=== PATIENT | female | born 1955 | race Two or more races ===

== ENCOUNTER 2023-06-01 06:07 | Inpatient (IN) | payer MEDICARE, OTHER ==
[~2023-06-01] VITALS: Ht 160 cm; Wt 74.1 kg
[2023-06-01 06:14] VITALS: BP 149/75; TEMP 97.9; O2SAT 96
[2023-06-01] MEDS ORDERED: FENTANYL PF 250MCG/5ML AMPUL ONE (07:03)
[2023-06-01] MEDS ORDERED: ROCURONIUM BROMIDE 50 MG/5 ML ONE (07:03)
[2023-06-01] MEDS ORDERED: LIDOCAINE 2%-EPI 1:100,000 30 ML VIAL ONE ×2 (07:08→07:11)
[2023-06-01] MEDS ORDERED: ANESTHESIA TRAY IN PYXIS 1 EA TRAY MC ONE (07:08)
[2023-06-01] MEDS ORDERED: dexaMETHasone SOD PHOSPHATE 2 ML ONE ×2 (07:09→07:11)
[2023-06-01] MEDS ORDERED: VANCOMYCIN 1 GM VIAL ONE ×2 (07:09→07:11)
[2023-06-01] MEDS ORDERED: SEVOFLURANE 250 ML BOTTLE IH ONE (07:51)
[2023-06-01 11:00] VITALS: BP 134/65; TEMP 97.7; O2SAT 96
[2023-06-01] MEDS ORDERED: ROSU5TAB PO (11:14)
[2023-06-01] MEDS ORDERED: LISI10TA29 PO (11:14)
[2023-06-01] MEDS ORDERED: MONT10TA22 PO (11:14)
[2023-06-01] MEDS ORDERED: LEVO137T24 PO (11:14)
[2023-06-01] MEDS ORDERED: LEVA15HF4 IH (11:14)
[2023-06-01] MEDS ORDERED: IBUP-23 PO (11:14)
[2023-06-01] MEDS ORDERED: IV NS 0.9% 1,000 ML IV PRN (11:30)
[2023-06-01] MEDS ORDERED: HYDROMORPHONE 1 MG/1 ML DISP.SYRIN IV PRN (11:30)
[2023-06-01] MEDS ORDERED: ONDANSETRON HCL/PF 4 MG/2 ML VIAL IVP PRN (11:30)
[2023-06-01 13:00] VITALS: BP 134/65; TEMP 97.7; O2SAT 96
[2023-06-01] MEDS: VANCOMYCIN 1 GM in IV D5W 250ml IV SCH (15:58)
[2023-06-01 16:00] VITALS: BP 133/72; TEMP 97.6; O2SAT 96
[2023-06-01] MEDS: ACETAMINOPHEN 325 MG TABLET PO PRN (18:55)
[2023-06-01 20:00] VITALS: BP 118/62; TEMP 98.7; O2SAT 96
[2023-06-02] MEDS: ACETAMINOPHEN 325 MG TABLET PO PRN ×2 (01:35→07:20)
[2023-06-02] MEDS: VANCOMYCIN 1 GM in IV D5W 250ml IV SCH (02:33)
[2023-06-02 06:29] LABS: BASOPHILS % (AUTO) 0.1 % (0.0-2.0); HEMATOCRIT 34 % (33-45); HEMOGLOBIN 11.3 g/dL (11.5-14.8); LYMPHOCYTES # (AUTO) 1.6 K/uL (0.8-4.8); MEAN CORPUSCULAR HEMOGLOBIN 29 PG (26.0-33.0); MEAN CORPUSCULAR HGB CONC 34 g/dl (31.0-36.0); MEAN CORPUSCULAR VOLUME 86 fL (82-100); MONOCYTES # (AUTO) 0.7 K/uL (0.1-1.30); MONOCYTES % (AUTO) 8.2 % (2.0-12.0); NEUTROPHILS # (AUTO) 6.4 K/uL (1.8-8.9); NEUTROPHILS % (AUTO) 73.7 % (43.0-81.0); PLATELET COUNT (AUTO) 214 K/uL (150-450); RED BLOOD CELL COUNT(AUTO) 3.88 MIL/uL (4.0-5.2); RED CELL DISTRIBUTION WIDTH 14.1 % (11.5-15.0); WHITE BLOOD COUNT (AUTO) 8.7 K/uL (4.3-11.0)
[2023-06-02 06:56] LABS: CREATININE 0.6 mg/dL (0.6-1.3); MAGNESIUM 2.4 mg/dL (1.8-2.4); PHOSPHORUS 4.6 mg/dL (2.5-4.9); POTASSIUM 3.9 mmol/L (3.5-5.1)
[2023-06-02 08:00] VITALS: BP 123/62; TEMP 98.4; O2SAT 99
== END 2023-06-02 12:27 | disposition home or self-care (01) | DRG 516 ==
LOC: DS 06:07 → MED 06:09
PROVIDERS: ADMIT Nurse Practitioner Acute Care; ATTEND Nurse Practitioner Acute Care
PROC: 0NSV04Z Reposition Left Mandible with Internal Fixation Device, Open Approach (ICD-10-PCS; principal; 2023-06-01)
PROC: 0NST04Z Reposition Right Mandible with Internal Fixation Device, Open Approach (ICD-10-PCS; 2023-06-01)
PROC: 0NUR07Z Supplement Maxilla with Autologous Tissue Substitute, Open Approach (ICD-10-PCS; 2023-06-01)
PROC: 0NSR04Z Reposition Maxilla with Internal Fixation Device, Open Approach (ICD-10-PCS; 2023-06-01)
PROC: 0NUV07Z Supplement Left Mandible with Autologous Tissue Substitute, Open Approach (ICD-10-PCS; 2023-06-01)
PROC: 0NUT07Z Supplement Right Mandible with Autologous Tissue Substitute, Open Approach (ICD-10-PCS; 2023-06-01)
PROC: 09UR07Z Supplement Left Maxillary Sinus with Autologous Tissue Substitute, Open Approach (ICD-10-PCS; 2023-06-01)
PROC: 0NBT0ZZ Excision of Right Mandible, Open Approach (ICD-10-PCS; 2023-06-01)
PROC: 0NBR0ZX Excision of Maxilla, Open Approach, Diagnostic (ICD-10-PCS; 2023-06-01)
DX: T84.7XXA Infection and inflammatory reaction due to other internal orthopedic prosthetic devices, implants and grafts, initial encounter (principal); S02.40CA Maxillary fracture, right side, initial encounter for closed fracture; S02.40DA Maxillary fracture, left side, initial encounter for closed fracture; S02.69XA Fracture of mandible of other specified site, initial encounter for closed fracture; M27.2 Inflammatory conditions of jaws; E89.0 Postprocedural hypothyroidism; I10 Essential (primary) hypertension; J45.909 Unspecified asthma, uncomplicated; M19.90 Unspecified osteoarthritis, unspecified site; E78.5 Hyperlipidemia, unspecified; Z82.49 Family history of ischemic heart disease and other diseases of the circulatory system; X58.XXXA Exposure to other specified factors, initial encounter; Y93.9 Activity, unspecified; J32.0 Chronic maxillary sinusitis; D16.4 Benign neoplasm of bones of skull and face; Y83.8 Other surgical procedures as the cause of abnormal reaction of the patient, or of later complication, without mention of misadventure at the time of the procedure; Y92.009 Unspecified place in unspecified non-institutional (private) residence as the place of occurrence of the external cause
CPT/HCPCS: 36415; 80048-TC; 82962-TC; 83735-TC; 84100-TC; 85025-TC; 87081-TC; A4223; C1713; G0378; J0690; J1100; J1170; J2405; J2704; J3010; J3370; J3490; J7030; J7060

== ENCOUNTER → 2023-10-04 | Day surgery (SDC) | payer MEDICARE, OTHER ==
[~2023-10-04] MED LIST: ACETAMINOPHEN 325 MG TABLET PO PRN; FENTANYL PF 100MCG/2ML AMPUL ONE; HYDROMORPHONE 1 MG/1 ML DISP.SYRIN IV PRN; IBUP-23 PO; IV NS 0.9% 1,000 ML IV PRN; LEVA15HF4 IH; LEVO137T24 PO; LIDOCAINE 2%-EPI 1:100,000 30 ML VIAL ONE; LISI10TA29 PO; MONT10TA22 PO; ONDANSETRON HCL/PF 4 MG/2 ML VIAL IV PRN; OXYMETAZOLINE HCL NASAL SPRAY 30 ML BOTTLE NS ONE; ROSU5TAB PO; VANCOMYCIN 1 GM VIAL ONE; dexaMETHasone SOD PHOSPHATE 2 ML ONE
== END | disposition home or self-care (01) ==
LOC: DS 09:59
PROVIDERS: ATTEND Dentist Oral and Maxillofacial Surgery
DX: T84.69XA Infection and inflammatory reaction due to internal fixation device of other site, initial encounter (principal); J44.9 Chronic obstructive pulmonary disease, unspecified; T81.83XA Persistent postprocedural fistula, initial encounter; S01.512A Laceration without foreign body of oral cavity, initial encounter; Z79.899 Other long term (current) drug therapy; X58.XXXA Exposure to other specified factors, initial encounter; Y93.89 Activity, other specified; Y92.89 Other specified places as the place of occurrence of the external cause; Y99.8 Other external cause status
CPT/HCPCS: 20680; 21048; 41826; 88300; 88305; 88311; J0360; J0690; J1100; J2704; J3010; J3370; J3490; J1170